=== PATIENT | male | born 2000 | race Caucasian/White ===

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

== ENCOUNTER 2020-07-18 08:14 | Emergency (ER) | payer SELFPAY ==
--- NOTE | 2020-07-18 08:21 | ED_ITS ---
HPI - Male Genitourinary General: Chief complaint: Wound/Laceration Stated complaint: NEEDS STD TESTED Time Seen by Provider: 07/18/20 08:15 Source: patient Mode of arrival: ambulatory Limitations: no limitations History of Present Illness: HPI Narrative: Patient is a 20-year-old male who presents to ED today requesting STD testing. Patient tells me he recently had intercourse with a female individual who later told him that she was only diagnosed with a UTI but he suspects she may have had an STD. Patient is having severe dysuria. He has not noticed any penile discharge. He has a separate complaint of a very small bump on his penis. He states the lesion is not painful and does not burn or itch. Patient states he has had unprotected anal intercourse. MD Complaint: dysuria and possible STD exposure Onset (ago): day(s) Duration: constant Location: penis Severity: severe Relieving factors: none Exacerbating factors: urination Associated symptoms: Reports no associated symptoms and dysuria; Deny nausea or vomiting Related Data: Sexually active: Yes Review of Systems Const: Denies: fever(s), chills, body aches, fatigue or malaise GI: Denies: abdominal pain, nausea, vomiting or change in stool character : Reports: dysuria, urinary hesitancy and genital lesions; Denies: flank pain, urinary urgency, difficulty starting urination, change in urine stream, penile discharge, testicular pain, testicular mass, scrotal swelling or painful ejaculations Musc: Denies: back pain PFSH ED PFSH: Social History Smoking and tobacco status: current every day smoker Alcohol intake: unknown Current gender identity: Male Physical Exam 2 Const: COMMON NORMALS: no acute distress, average body habitus, patient oriented x3, no limitations, healthy appearing, alert and well nourished GENERAL APPEARANCE: cooperative GI: COMMON NORMALS: Normal to inspection, nondistended, normoactive bowel sounds present, Soft to palpation, non-tender, No hepatosplenomegaly present and no masses PALPATION: Yes Soft to palpation and Yes No hepatosplenomegaly present : COMMON NORMALS: Yes no CVA tenderness, Yes Testes normal, Yes scrotum normal and Yes No hernias present BLADDER/KIDNEY EXAM: Yes no CVA tenderness PENIS: circumcised, no pustules, no vesicles and no ulcerations MEATUS: meatus normal, no meatla discharge and No Blood at meatus present SCROTUM: Yes testes descended bilaterally TESTES: Yes testicular lie normal OTHER: pt has one very small 1-2mm scabbed healing lesion on glans; it is not ulcerated or vesicular; it is not erythematous; there are no other lesions present Back/Pelvis: COMMON NORMALS: no CVA tenderness Neuro: COMMON NORMALS: patient oriented x3 SENSORIUM/ORIENTATION: Yes alert Course Vital Signs: Vital signs: Vital Signs Temperature 98.1 F 07/18/20 08:22 Pulse Rate 97 07/18/20 08:22 Respiratory Rate 15 07/18/20 08:30 Blood Pressure 139/92 07/18/20 08:22 Pulse Oximetry 100 07/18/20 08:22 MDM - Male MDM Narrative: Medical decision making narrative: pts penile lesion at this time does not look like HSV; lesion is not suspicious for a syphilitic chancre; urine here is normal; will be tested for gonorrhea/chlamydia. He was given IM rocephin and azithromycin prophylactically Lab Data: Labs: Lab Results 07/18/20 Range/Units 08:37 Urine Color Yellow (Yellow) Urine Appearance Clear (CLEAR) Urine pH 6.5 (5-7) Ur Specific Gravit y 1.015 (1.005-1.030) Urine Protein Neg (Negative) Urine Glucose (UA) Norm (Normal) Urine Ketones Negative (Negative) Urine Blood Neg (Negative) Urine Nitrate Negative (Negative) Urine Bilirubin Neg (Negative) Urine Urobilinogen 4 H (Negative) mg/dL Ur Leukocyte Myrna ase Negative (Negative) Discharge Plan Discharge Patient Disposition: Home Clinical Impression: Dysuria Condition: Stable Prescriptions: No Action omeprazole 40 mg capsule,delayed release(DR/EC) 40 mg PO BID Qty: 60 RF: 2 sucralfate [Carafate] 1 gram tablet 1 gm PO Q6H Qty: 120 RF: 1 tizanidine 4 mg capsule 4 mg PO .qhs PRN (Reason: muscle spasticity) Qty: 30 RF: 2 diclofenac sodium 75 mg tablet,delayed release (DR/EC) 75 mg PO BID Qty: 60 RF: 2 Discharge Orders: Discharge ED (Routine); Ordered 07/18/20 Ordered By: Tiffanie Moyer Patient Instructions: Dysuria - Male, Sexually Transmitted Diseases (ED), Safe Sex (ED) Activity Restrictions/Additional Instructions: As discussed you should be called in the next 48 hours if positive for gonorrhea or chlamydia. If positive you need to have a test of cure performed [facility] You would need to also alert all sexual partners so they could also receive treatment. If results are negative please follow-up with your primary care provider for further management of the burning with urination. 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
[2020-07-18 08:22] VITALS: BP 139/92; PULSE 97; RESP 18; TEMP 36.7; O2SAT 100; BMI 22.8
[2020-07-18 08:30] VITALS: RESP 15
[2020-07-18 08:52] LABS: Add Urine Microscopic? NO
[2020-07-18 09:02] LABS: Specific Gravity, Urine 1.015 (1.005-1.030); Urine Appearance Clear (CLEAR); Urine Color Yellow (Yellow); pH Urine 6.5 (5-7)
[2020-07-18 09:03] LABS: Bilirubin Urine Neg (Negative); Blood Urine Neg (Negative); Glucose Urine UA Norm (Normal); Ketones Urine Negative (Negative); Leukocyte Esterase Urine Negative (Negative); Nitrate Urine Negative (Negative); Protein Urine Neg (Negative); Urobilinogen Urine 4 mg/dL (Negative)
[2020-07-18] MEDS: azithromycin 250 mg Tablet 1000 MG PO (09:17)
[2020-07-18 09:59] VITALS: BP 135/78; PULSE 71; RESP 16; O2SAT 97
--- NOTE | 2020-07-20 08:29 | PC.NURSE ---
Patient called to ED requesting test results, informed patient of positive chalmydia trachomatis. Called Azithromycin 1gm once PO to [facility] per patient, pharmacy was out of stock. Attempted to contact patient with the number in patients chart and the number [facility] provided, both numbers out of service. Asked [facility] to please order the Rx for patient that would be delivered to pharmacy tomorrow.
== END 2020-07-18 10:00 | disposition home or self-care (01) ==
PROVIDERS: Emergency Provider Physician Assistant
DX: R30.0 Dysuria (principal); F17.210 Nicotine dependence, cigarettes, uncomplicated
CPT/HCPCS: 81003; 87491; 87591; 96372; 99283; J0696; Q0144

== ENCOUNTER 2021-01-13 10:58 | Emergency (ER) | payer SELFPAY ==
[2021-01-13 11:36] VITALS: BP 144/94; PULSE 82; RESP 19; TEMP 36.8; O2SAT 98; BMI 24.0
[2021-01-13 12:10] VITALS: BP 134/91; PULSE 81; RESP 16; O2SAT 100
--- NOTE | 2021-01-13 12:19 | ED_ITS ---
HPI - Abdominal Pain General: Chief Complaint: Abdominal Pain Stated Complaint: throwing up brown/black tarry circles:sent by [facility] Time Seen by Provider: 01/13/21 12:04 Source: patient Mode of arrival: ambulatory Limitations: no limitations History of Present Illness: HPI narrative: 20-year-old male presents to the ER today for 1 episode of vomiting this a.m. and he noticed dark red spots in his vomit. Patient admits to drinking last night in excess. He denies any vomiting while drinking or during the night, but does contribute the morning episode of vomiting to the drinking last night. Patient reports with this he has had some epigastric discomfort which seems to come and go. Patient reports a history of gastric ulcers for which in the past he was treated with a PPI, Carafate, tizanidine and something for pain he reports. When his girlfriend left him she took the medications with her. Patient reports he used to drink a lot more than he does but last night he did drink more than normal. Patient denies any nausea at this time. Denies any vomiting since the one episode this a.m, denies diarrhea, denies constipation. Patient denies any fever or chills. Patient denies recent illness. MD elicited complaint: abdominal pain (mild mid epigastric) Pertinent past history: other (gastric ulcers) Onset (ago): hour(s) Pain Consistency: intermittent Location: Epigastric Severity: mild Quality: cramping Radiation: none Exacerbating factors: other (drinking) Context: other (excessive drinking last night) Associated Symptoms: Reports hematemesis (dark spot noted in emesis), nausea and vomiting; Denies change in bowel habits, chills, constipation, diarrhea and fever(s) Review of Systems Const: Denies: fever(s) or chills ENMT: Denies: throat pain, nasal discharge or nasal congestion Card: Denies: chest pain or palpitations Resp: Denies: dyspnea, productive cough or non-productive cough GI: Reports: abdominal pain (epigastric), nausea, vomiting and hematemesis (dark spot noted in emesis); Denies: diarrhea, constipation or change in bowel habits Musc: Denies: back pain Skin/Breast: Denies: rash Neuro: Denies: headache(s) PFSH ED PFSH: Social History Smoking and tobacco status: current every day smoker Alcohol intake: unknown Current gender identity: Male Physical Exam Const: COMMON NORMALS: no acute distress, average body habitus, patient oriented x3 and healthy appearing GENERAL APPEARANCE: cooperative HENMT: COMMON NORMALS: normocephalic HEAD & SCALP: normocephalic Lymph: LYMPHATIC: no lymphadenopathy noted Resp: COMMON NORMALS: normal respiratory effort, No retractions and clear to auscultation bilaterally EFFORT & INSPECTION: Yes able to speak in complete sentences AUSCULTATION: clear to auscultation bilaterally, no rales, no rhonchi and no wheezes Cardio: COMMON NORMALS: regular rate, regular rhythm and No murmurs present (Cardio) RATE: regular rate RHYTHM: regular rhythm GI: COMMON NORMALS: Normal to inspection, nondistended, normoactive bowel sounds present and Soft to palpation PALPATION: Yes Soft to palpation, Yes Tenderness to palpation present (GI) (minimal epigastric tenderness) and No Guarding due to palpation present (GI) Extremity: COMMON NORMALS: normal to inspection and full ROM Neuro: COMMON NORMALS: patient oriented x3 Psych: COMMON NORMALS: mental status grossly normal and Normal thought process present THOUGHT PROCESS: Normal thought process present Skin: COMMON NORMALS: no rashes or lesions noted GENERAL SKIN EXAM: no rashes or lesions noted Course ED course: We will start with lab work. Patient does not note any bright red blood and has only had one episode of emesis. He is not currently in any pain and does not currently have any nausea. Patient has a known history of gastric ulcers but has not been taking medication for that appropriately. Vital Signs: Vital signs: Vital Signs Temperature 98.3 F 01/13/21 11:36 Pulse Rate 81 01/13/21 12:10 Respiratory Rate 16 01/13/21 12:10 Blood Pressure 134/91 01/13/21 12:10 Pulse Oximetry 100 01/13/21 12:10 MDM - Abdominal Pain MDM Narrative: Medical decision making narrative: Patient presents to the ER today for reports of one episode of hematemesis. This happened after drinking last night. Patient has a history of gastric ulcers and was previously on medication but has been off for a while. His physical exam was unremarkable in ER and patient is stable. Labs are all normal. We will restart patient on omeprazole and Carafate at this time. He should follow-up with his PCP in 1 week. If he has any worsening of symptoms or more episodes of hematemesis he should follow-up in the ER. Lab Data: Attestation: I reviewed the patient's lab results. Lab results narrative: Labs unremarkable Labs: Lab Results 01/13/21 01/13/21 Range/Units 12:24 12:24 WBC 6.6 (4.5-13.0) 10^3/ uL RBC 5.54 H (4.1-5.3) 10^6/u L Hgb 17.1 H (11.7-16.6) g/dL Hct 50.3 (42.0-52.0) % MCV 90.8 (80-94) fl MCH 30.9 (28.0-34.0) pg MCHC 34.0 (30.0-36.0) g/dL RDW 13.2 (12.1-15.1) % Plt Count 285 (130-400) 10^3/c mm MPV 10.6 H (7.4-10.4) fL Neut % (Auto) 64.7 % Lymph % (Auto) 21.6 % [place] % (Auto) 11.5 % Eos % (Auto) 0.8 % Baso % (Auto) 1.1 % Neut # (Auto) 4.29 (1.8-8.0) 10^3/u L Lymph # (Auto) 1.4 L (1.5-6.5) 10^3/u L [place] # (Auto) 0.8 (0.2-0.9) 10^3/u L Eos # (Auto) 0.1 (0.0-0.8) 10^3/u L Baso # (Auto) 0.1 (0.0-0.1) 10^3/u L Nucleated RBC % (a uto) 0 % Nucleated RBCs # 0.0 /100WBC Sodium 140 (136-145) mmol/L Potassium 4.2 (3.5-5.1) mmol/L Chloride 102 (98-107) mmol/L Carbon Dioxide 26 (22-29) mmol/L Anion Gap 16.2 (5-19) BUN 8 (6-20) mg/dL Creatinine 0.7 (0.7-1.2) mg/dL GFR Calculation 143.8 H (90-130) mL/min Glucose 83 (65-115) mg/dL Calculated Osmolal ity 287 (285-295) mOsm/k g Calcium 9.1 (8.5-10.5) mg/dL Total Bilirubin 0.6 (0.15-1.2) mg/dL AST 16 (0-40) U/L ALT 17 (0-41) U/L Alkaline Phosphata se 65 (40-130) IU/L Total Protein 7.9 (6.6-8.7) g/dL Albumin 4.5 (3.5-5.2) g/dL Globulin 3.4 (1.3-4.6) g/dL Lipase 28 (13-60) U/L Critical Care Time Critical Care Time: Critical Care Time: No Discharge Plan Discharge Patient Disposition: Home Clinical Impression: Hematemesis/vomiting blood Qualifiers: Nausea presence: unspecified Qualified Code(s): K92.0 - Hematemesis Condition: Stable Prescriptions: New omeprazole 20 mg capsule,delayed release(DR/EC) 20 mg PO DAILY Qty: 30 RF: 0 Carafate 1 gram tablet 1 g PO BID Qty: 28 RF: 0 Discharge Orders: Discharge ED (Routine); Ordered 01/13/21 Ordered By: Kaylan Weems Discharge Diet: Usual diet Discharge Activity: Resume usual activity Patient Instructions: Opioid Safety Activity Restrictions/Additional Instructions: Take omeprazole and Carafate as prescribed. Avoid alcohol use. Follow-up with PCP in 1 week. Return to the ER with any new or worsening symptoms. Coding Level of Care Code ED Human Services Worker for Nieves Fwd Exam Comprehensive
[2021-01-13 12:38] LABS: Basophils # 0.1 10^3/uL (0.0-0.1); Basophils % 1.1 %; Eosinophils # 0.1 10^3/uL (0.0-0.8); Eosinophils % 0.8 %; Hematocrit 50.3 % (42.0-52.0); Hemoglobin 17.1 g/dL (11.7-16.6); Lymphocytes # 1.4 10^3/uL (1.5-6.5); Lymphocytes % 21.6 %; Mean Corpuscular Hemoglobin 30.9 pg (28.0-34.0); Mean Corpuscular Volume 90.8 fl (80-94); Mean Platelet Volume 10.6 fL (7.4-10.4); Monocytes # 0.8 10^3/uL (0.2-0.9); Monocytes % 11.5 %; Neutrophils # 4.29 10^3/uL (1.8-8.0); Neutrophils % 64.7 %; Nucleated Red Blood Cells % 0 %; Platelet Count 285 10^3/cmm (130-400); Red Blood Count 5.54 10^6/uL (4.1-5.3); Red Cell Distribution Width 13.2 % (12.1-15.1); White Blood Count 6.6 10^3/uL (4.5-13.0)
[2021-01-13 13:00] VITALS: BP 130/97; PULSE 94; RESP 16; O2SAT 98
[2021-01-13 13:05] LABS: Alanine Aminotransferase 17 U/L (0-41); Albumin Level 4.5 g/dL (3.5-5.2); Alkaline Phosphatase 65 IU/L (40-130); Anion Gap 16.2 (5-19); Aspartate Amino Transferase 16 U/L (0-40); Blood Urea Nitrogen 8 mg/dL (6-20); Calcium 9.1 mg/dL (8.5-10.5); Carbon Dioxide 26 mmol/L (22-29); Chloride 102 mmol/L (98-107); Globulin 3.4 g/dL (1.3-4.6); Glomerular Filtration Rate 143.8 mL/min (90-130); Glucose 83 mg/dL (65-115); Lipase 28 U/L (13-60); Osmolality Calculated 287 mOsm/kg (285-295); Potassium 4.2 mmol/L (3.5-5.1); Sodium 140 mmol/L (136-145); Total Bilirubin 0.6 mg/dL (0.15-1.2); Total Protein 7.9 g/dL (6.6-8.7)
== END 2021-01-13 13:35 | disposition home or self-care (01) ==
PROVIDERS: Emergency Provider Physician Assistant
DX: K92.0 Hematemesis (principal); F17.210 Nicotine dependence, cigarettes, uncomplicated
CPT/HCPCS: 80053; 83690; 85025; 99282

== ENCOUNTER 2022-12-16 20:02 | Emergency (ER) | payer MEDICAID, SELFPAY ==
[2022-12-16 20:16] VITALS: BP 120/60; PULSE 101; RESP 18; TEMP 36.7; O2SAT 97; BMI 27.3
--- NOTE | 2022-12-16 20:20 | XRR_ITS ---
PROCEDURE INFORMATION: Exam: XR Right Tibia and Fibula Exam date and time: 12/16/2022 9:44 PM Age: 22 years old Clinical indication: Injury or trauma; Fall TECHNIQUE: Imaging protocol: Radiologic exam of the right tibia and fibula. Views: 2 views. COMPARISON: No relevant prior studies available. FINDINGS: Bones/joints: Mildly displaced distal fibular acute spiral fracture. Equivocal fracture in the posterior malleolus. No dislocation. Soft tissues: Lateral ankle swelling. XR/XR tibia fibula RT 2V [id number] IMPRESSION: 1. Distal fibula acute spiral fracture. 2. Equivocal fracture in the posterior malleolus.
[2022-12-16 21:27] VITALS: BP 129/75; PULSE 91; RESP 18; TEMP 36.7; O2SAT 98
--- NOTE | 2022-12-16 21:40 | ED_ITS ---
HPI - Extremity Problem General: Chief complaint: Extremity Injury, Lower Stated complaint: right foot injury Time Seen by Provider: 12/16/22 21:35 History of Present Illness: This 22-year-old male presents to the ER for evaluation of right lower extremity injury that occurred just prior to arrival. His friend was chasing him and while running, he twisted the right ankle. He notes that he heard a pop in the right leg. He could not walk afterwards. He denies any other injuries. Associated symptoms: Deny chest pain Review of Systems Const: Denies: chills, body aches or change in appetite Eyes: Denies: change in vision or eye discharge ENMT: Denies: throat pain, dental pain or nasal discharge Card: Denies: chest pain or lightheadedness : Denies: dysuria Musc: Reports: joint pain (right ankle ); Denies: neck pain or back pain Neuro: Denies: headache(s) or weakness in extremities Psych: Denies: depression Jarek/Lymph: Denies: easy bruising All/Imm: Denies: urticaria, tongue swelling or facial swelling PFSH ED PFSH: Social History Smoking and tobacco status: current every day smoker Alcohol intake: unknown Substance/Drug Use: unknown Current gender identity: Male Physical Exam Const: COMMON NORMALS: no acute distress, patient oriented x3, no limitations and alert HENMT: COMMON NORMALS: normocephalic HEAD & SCALP: normocephalic Eye: COMMON NORMALS: EOMs intact bilaterally Neck/C-Spine: COMMON NORMALS: full ROM and supple Chest: COMMONS NORMALS: normal inspection of the chest Resp: COMMON NORMALS: normal respiratory effort, No retractions, No use of accessory muscles and clear to auscultation bilaterally AUSCULTATION: clear to auscultation bilaterally Cardio: COMMON NORMALS: regular rate, regular rhythm and No murmurs present (Cardio) RATE: regular rate RHYTHM: regular rhythm GI: COMMON NORMALS: Normal to inspection, nondistended, normoactive bowel sounds present and non-tender : COMMON NORMALS: Yes no CVA tenderness BLADDER/KIDNEY EXAM: Yes no CVA tenderness Back/Pelvis: COMMON NORMALS: no CVA tenderness and no thoracic nor lumbar tenderness Extremity: GENERAL: Yes normal exam except as noted OTHER: Swelling and tenderness of the right lateral malleolus. Marked limitation of ankle movement due to pain. Dorsalis pedis pulse is present and there is no distal neurologic deficit. Neuro: COMMON NORMALS: patient oriented x3 and no focal motor deficits SENSORIUM/ORIENTATION: Yes alert Psych: COMMON NORMALS: mental status grossly normal and cooperative Course Vital Signs: Vital signs: Vital Signs Temperature 98.0 F 12/16/22 21:27 Pulse Rate 91 12/16/22 21:27 Respiratory Rate 18 12/16/22 21:27 Blood Pressure 129/75 12/16/22 21:27 Pulse Oximetry 98 12/16/22 21:27 Oxygen Delivery Me thod Room Air 12/16/22 21:27 MDM - Extremity (Nontraumatic) Medical Decision Making Medical decision making: History as above. X-ray reveals fracture of the right lateral malleolus. There is no ankle dislocation. Patient was put in a splint and provided a pair of crutches. He will follow-up with Dr. Lin in the office. Consult was sent to case management to help him schedule an appointment. Patient was also advised to call Dr. Lin's office to schedule an outpatient appointment. He was sent home with pain medications and provided with return instructions. Patient verbalized understanding and agrees with the plan. Discharge Plan Discharge Patient Disposition: Home Clinical Impression: Fracture of lateral malleolus of right ankle Condition: Stable Prescriptions: New hydrocodone-acetaminophen 5-325 mg tablet 1 tab PO QID PRN (Reason: pain) Qty: 20 0RF Discharge Orders: Discharge ED (Routine); Ordered 12/16/22 Ordered By: Stephanie Freitas Discharge Diet: Usual diet Discharge Activity: Resume usual activity Patient Instructions: Opioid Safety, Pain Management Activity Restrictions/Additional Instructions: Utilized the pair of crutches provided. Do not bear weight. Call 's office to schedule a follow-up appointment. Take [place] as needed for pain. Return if you develop any new concerning symptoms. 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
--- NOTE | 2022-12-16 21:49 | XRR_ITS ---
PROCEDURE INFORMATION: Exam: XR Right Foot Exam date and time: 12/16/2022 9:51 PM Age: 22 years old Clinical indication: Injury or trauma; Fall; Additional info: Lower extremity injury TECHNIQUE: Imaging protocol: Radiologic exam of the right foot. Views: 1 or 2 views. COMPARISON: CR (LOW EXM, ) 12/16/2022 9:44 PM FINDINGS: Bones/joints: Mildly displaced distal fibular acute spiral fracture. Equivocal fracture in the posterior malleolus. No dislocation. Soft tissues: Lateral ankle and midfoot swelling. XR/XR foot RT 2V [id number] IMPRESSION: 1. Distal fibula acute spiral fracture. 2. Equivocal fracture in the posterior malleolus.
[2022-12-16] MEDS: HYDROcodone-acetaminophen 5-325 mg Tablet 1 TAB PO (22:45)
--- NOTE | 2022-12-17 08:18 | DCPLANNER ---
Addendum entered by Twila Lau 12/26/22 13:22: Patient did attend appointment scheduled with ortho. Addendum entered by Twila Lau 12/17/22 14:25: digital marketing program manager received the following message from the ortho clinic regarding follow up appointment: Yes it looks like Y[facility] had scheduled it tentatively, we cannot reach the patient as the number in the chart is not in service. On 12/17/22 @ 14:10 Twila Lau Wrote To Orthopedic Front Offfice I don't see this scheduled, was it cancelled? On 12/17/22 @ 10:35 Barbara Hermosillo Wrote To Twila Lau Looks like [facility] Oconnor got the patient scheduled this morning to see Dr. Jurado this afternoon. Thank you Original Note: digital marketing program manager had message to schedule a follow up appointment for patient with ortho. digital marketing program manager sent patients information to the front office staff at ortho. Patients information will be printed and reviewed. Clinic will call patient with appointment information.
--- NOTE | 2022-12-17 12:05 | DCPLANNER ---
system development manager called patient due to no primary care physician - no answer at this time.
== END 2022-12-16 22:57 | disposition home or self-care (01) ==
PROVIDERS: Emergency Provider Family Medicine
DX: S82.61XA Displaced fracture of lateral malleolus of right fibula, initial encounter for closed fracture (principal); S82.441A Displaced spiral fracture of shaft of right fibula, initial encounter for closed fracture; X50.1XXA Overexertion from prolonged static or awkward postures, initial encounter; F17.210 Nicotine dependence, cigarettes, uncomplicated
CPT/HCPCS: 73590; 73620; 99283; E0114

== ENCOUNTER → 2022-12-25 12:23 | Outpatient (BNVA) | payer MEDICAID, SELFPAY | PROVIDERS: Referring Provider Family Medicine; Visit Provider Podiatrist Foot & Ankle Surgery | DX: S82.401A Unspecified fracture of shaft of right fibula, initial encounter for closed fracture; R60.9 Edema, unspecified; X50.1XXA Overexertion from prolonged static or awkward postures, initial encounter; Y93.02 Activity, running | CPT/HCPCS: 73610 ==

== ENCOUNTER 2023-01-03 15:57 | Emergency (ER) | payer MEDICAID, SELFPAY ==
[2023-01-03 16:12] VITALS: BP 126/80; PULSE 75; RESP 16; TEMP 37; O2SAT 99; BMI 27.4
--- NOTE | 2023-01-03 16:38 | XRR_ITS ---
PROCEDURE INFORMATION: Exam: XR Right Ankle Exam date and time: 01/03/2023 4:42 PM Age: 22 years old Clinical indication: Pain; Ankle; Right; Patient HX: PT fell with cast on; Additional info: FX TECHNIQUE: Imaging protocol: Radiologic exam of the right ankle. Views: 3 or more views. COMPARISON: CR (LOW EXM, ) 12/16/2022 9:51 PM FINDINGS: Bones/joints: Overlying fiberglass splint is seen. Spiral or oblique fracture of the lateral malleolus is seen with slight cortical offset deformity without significant displacement or angulation, as seen with previous exam of the right tibia and fibula on December 16, 2022. Mild interval healing. No other fracture is seen. Ankle joint appears maintained. Soft tissues: Soft tissues are limited due to overlying cast without significant focal abnormality. XR/XR ankle RT min 3V* [id number] IMPRESSION: Fiberglass cast for immobilization spiral or oblique fracture of the lateral malleolus as noted above.
--- NOTE | 2023-01-03 17:03 | W.ED.EXTPRO ---
HPI - Extremity Problem General: Chief complaint: Extremity Injury, Lower Stated complaint: right leg injury Time Seen by Provider: 01/03/23 16:38 Source: patient Mode of arrival: ambulatory Limitations: no limitations History of Present Illness: 22-year-old male has a right fibular fracture that occurred 3 weeks ago he has been followed with Dr. Chappell she is currently in a cast he states that yesterday he was walking and tripped and hit his cast on the floor has been having some increased pain since then he is resting comfortably in the room texting at this time states his pain is a 5 out of 10. Associated symptoms: Deny chest pain, fever(s) or rash Review of Systems Const: Denies: fever(s) or chills ENMT: Denies: throat pain or dental pain Card: Denies: chest pain Resp: Denies: dyspnea GI: Denies: abdominal pain, nausea, vomiting or diarrhea Musc: Reports: extremity pain; Denies: neck pain or back pain Skin/Breast: Denies: rash PFSH ED PFSH: Social History Smoking and tobacco status: current every day smoker Alcohol intake: unknown Substance/Drug Use: unknown Current gender identity: Male Physical Exam Const: COMMON NORMALS: no acute distress and patient oriented x3 HENMT: COMMON NORMALS: atraumatic HEAD & SCALP: atraumatic Eye: COMMON NORMALS: conjunctivae normal CONJUNCTIVA: Yes conjunctivae normal Chest: COMMONS NORMALS: normal inspection of the chest Resp: COMMON NORMALS: normal respiratory effort Extremity: OTHER: Cast is in place he is no noted swelling good distal cap refill to toes good sensation Neuro: COMMON NORMALS: patient oriented x3 Psych: COMMON NORMALS: mental status grossly normal Skin: COMMON NORMALS: no rashes or lesions noted GENERAL SKIN EXAM: no rashes or lesions noted Course Vital Signs: Vital signs: Vital Signs Temperature 98.6 F 01/03/23 16:12 Pulse Rate 75 01/03/23 16:12 Respiratory Rate 16 01/03/23 16:12 Blood Pressure 126/80 01/03/23 16:12 Pulse Oximetry 99 01/03/23 16:12 Oxygen Delivery Me thod Room Air 01/03/23 16:12 MDM - Extremity (Nontraumatic) Medical Decision Making Patient presents with right ankle pain x-ray shows no acute change to his fracture we will leave cast in place no signs of swelling we will place him on 8 hydrocodone's he is to 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 Imaging Data Xray Ortho: My impression: no new abnormality noted Discharge Plan Discharge Patient Disposition: Home Clinical Impression: Closed right fibular fracture Qualifiers: Encounter type: subsequent encounter Condition: Stable Prescriptions: New hydrocodone-acetaminophen 5-325 mg tablet 1 tab PO Q6H PRN (Reason: pain) Qty: 8 0RF No Action tramadol 50 mg tablet 50 mg PO Q6H PRN (Reason: pain) Qty: 16 0RF hydrocodone-acetaminophen 5-325 mg tablet 1 tab PO QID PRN (Reason: pain) Qty: 20 0RF Discharge Orders: Discharge ED (Routine); Ordered 01/03/23 Ordered By: Messi Bang Referrals: Gus Jurado DPM [Primary Care Provider] - 1-3 days Discharge Diet: Advance as tolerated Discharge Activity: Resume usual activity Patient Instructions: Ankle Fracture (ED), Opioid Safety Coding Level of Care Code ED Supervisor Erection 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
[2023-01-03] MEDS: HYDROcodone-acetaminophen 7.5-325 mg Tablet 1 TAB PO (17:22)
== END 2023-01-03 17:27 | disposition home or self-care (01) ==
PROVIDERS: Emergency Provider Emergency Medicine; PCP Podiatrist Foot & Ankle Surgery
DX: S82.401A Unspecified fracture of shaft of right fibula, initial encounter for closed fracture (principal); F17.210 Nicotine dependence, cigarettes, uncomplicated; X58.XXXA Exposure to other specified factors, initial encounter
CPT/HCPCS: 73610; 99283

== ENCOUNTER → 2023-01-11 11:45 | Outpatient (BNVA) | payer MEDICAID, SELFPAY | PROVIDERS: PCP Podiatrist Foot & Ankle Surgery; Visit Provider Podiatrist Foot & Ankle Surgery | DX: S82.831A Other fracture of upper and lower end of right fibula, initial encounter for closed fracture; X58.XXXA Exposure to other specified factors, initial encounter; R60.9 Edema, unspecified | CPT/HCPCS: 73610 ==

== ENCOUNTER 2024-11-03 10:04 | Emergency (ER) | payer SELFPAY ==
[2024-11-03 10:23] VITALS: BP 145/102; PULSE 92; TEMP 36.7; O2SAT 98
--- NOTE | 2024-11-03 10:25 | XR_ITS ---
WS: [id number] Exam: XR chest 1V portable [id number] Date/Time of Exam: 11/03/2024 10:25 AM Reason For Exam: dyspnea/cough No priors. Lungs are clear and fully inflated. Normal cardiomediastinal silhouette and regional bony structures. No pleural effusion. XR/XR chest 1V portable [id number] IMPRESSION: 1. Normal chest.
--- NOTE | 2024-11-03 10:27 | ED_ITS ---
HPI - General Adult 2 General: Chief complaint: Alcohol Stated complaint: alcohol withdrawl, trouble breathing Time Seen by Provider: 11/03/24 10:26 History of Present Illness: 24-year-old male presents emergency room states for the last about 6 years he has been drinking 1/5 of hard liquor per day. He quit for a week approximately 2 and half weeks ago and then he went on a 3-day burger now it has been 4 days since his last drink. Comes in today complaining of stomach upset anxiousness some mild tremor. He is complaining of some flank pain concentrated urine. He denies any hematochezia melena hematemesis coffee-ground emesis. Previously when he is attempted to stop drinking he has not had any seizures. No history of upper GI bleed. Associated symptoms: Deny chest pain, dyspnea or rash Related Data Previous Rx's ?Medication ?Instructions ?Recorded hydrocodone 5 mg-acetaminophen 325 1 tab PO QID PRN pa in #20 tabs 12/16/22 mg tablet tramadol 50 mg tablet 50 mg PO Q6H PRN pain #16 ta bs 12/25/22 hydrocodone 5 mg-acetaminophen 325 1 tab PO Q6H PRN pa in #8 tabs 01/03/23 mg tablet clindamycin HCl 300 mg capsule 300 mg PO Q6H #40 caps 01/11/23 chlordiazepoxide HCl 25 mg capsule 25 mg PO QID #7 cap s 11/03/24 pantoprazole 40 mg tablet,delayed 40 mg PO DAILY 4 wee ks #30 tabs 11/03/24 release Allergies Allergy/AdvReac Type Severity Reaction Status Date / Time escitalopram (From Lexapro) Allergy rash Verified 11/03/24 10:29 Review of Systems 2 Const: Denies: fever(s) or chills Card: Denies: chest pain Resp: Denies: dyspnea GI: Denies: abdominal pain : Denies: dysuria, urinary frequency or urinary urgency Musc: Denies: neck pain or back pain Skin/Breast: Denies: rash PFSH ED 2 PFSH: Medical History (Updated 11/03/24 @ 13:31 by Samson Tellez DO) GERD (gastroesophageal reflux disease) Social History Smoking and tobacco/nicotine status: current every day tobacco/nicotine user Alcohol intake: unknown Substance/Drug Use: unknown Current gender identity: Male Physical Exam 2 Const: GENERAL APPEARANCE: cooperative ORIENTATION/CONSCIOUSNESS: Yes awake, Yes oriented to person, Yes oriented to place and Yes oriented to time HENMT: COMMON NORMALS: normocephalic, atraumatic and hearing grossly normal bilaterally HEAD & SCALP: normocephalic and atraumatic Resp: COMMON NORMALS: normal respiratory effort, No retractions, No use of accessory muscles and clear to auscultation bilaterally AUSCULTATION: clear to auscultation bilaterally Cardio: COMMON NORMALS: regular rate, regular rhythm and No murmurs present (Cardio) RATE: regular rate RHYTHM: regular rhythm GI: COMMON NORMALS: Soft to palpation and No hepatosplenomegaly present A USCULTATION: Yes normoactive bowel sounds PALPATION: Yes Soft to palpation, No Tenderness to palpation present (GI), No Guarding due to palpation present (GI) and Yes No hepatosplenomegaly present Extremity: COMMON NORMALS: normal to inspection, capillary refill normal, no clubbing, cyanosis or edema, no calf tenderness and no pedal edema Neuro: SENSORIUM/ORIENTATION: Yes oriented to person, Yes oriented to place and Yes oriented to time Skin: COMMON NORMALS: no rashes or lesions noted GENERAL SKIN EXAM: no rashes or lesions noted Course 2 Vital Signs: Vital signs: Vital Signs Temperature 98.1 F 11/03/24 10:23 Pulse Rate 100 11/03/24 13:47 Blood Pressure 137/76 11/03/24 13:47 Pulse Oximetry 97 11/03/24 13:47 Oxygen Delivery Me thod Room Air 11/03/24 10:23 [facility] - General Adult Medical Decision Making Patient has not had problems with seizure in the past does have some mild tremulousness this was resolved with Ativan. Will discharge him home he is already 4 days into sobriety. Discharge patient home with a taper of chlordiazepoxide. Patient has plans with assistance of family to enter a substance abuse program. Medical Records I reviewed the patient's medical records. Lab Data I reviewed the patient's lab results. 11/03/24 11:30 11/03/24 11:30 Radiology Impressions Chest X-Ray 11/03/24 10:25 IMPRESSION: 1. Normal chest. Laboratory Results WBC 8.19 10^3/uL (3.29-11.43) 11/03/24 11:30 RBC 5.23 10^6/uL (3.85-5.65) 11/03/24 11:30 Hgb 15.60 g/dL (11.27-16.99) 11/03/24 11:30 Hct 46.2 % (37-53) 11/03/24 11:30 MCV 88.3 fl (82-101) 11/03/24 11:30 MCH 29.8 pg (27-33) 11/03/24 11:30 MCHC 33.8 g/dL (30-55) 11/03/24 11:30 RDW 12.6 % (12.1-15.1) 11/03/24 11:30 Plt Count 265 10^3/cmm (157-399) 11/03/24 11:30 MPV 10.3 fL (7.4-10.4) 11/03/24 11:30 Neut % (Auto) 77.1 % 11/03/24 11:30 Lymph % (Auto) 14.9 % 11/03/24 11:30 [place] % (Auto) 6.7 % 11/03/24 11:30 Eos % (Auto) 0.5 % 11/03/24 11:30 Baso % (Auto) 0.4 % 11/03/24 11:30 Neut # (Auto) 6.32 10^3/uL (1.8-7.7) 11/03/24 11:30 Lymph # (Auto) 1.2 10^3/uL (0.8-4.8) 11/03/24 11:30 [place] # (Auto) 0.6 10^3/uL (0.2-0.9) 11/03/24 11:30 Eos # (Auto) 0.0 10^3/uL (0.0-0.8) 11/03/24 11:30 Baso # (Auto) 0.0 10^3/uL (0.0-0.1) 11/03/24 11:30 Nucleated RBC % (auto) 0 % 11/03/24 11:30 Nucleated RBCs # 0.0 /100WBC 11/03/24 11:30 Sodium 135 mmol/L (136-145) L 11/03/24 11:30 Potassium 3.7 mmol/L (3.5-5.1) 11/03/24 11:30 Chloride 96 mmol/L (98-107) L 11/03/24 11:30 Carbon Dioxide 23 mmol/L (22-29) 11/03/24 11:30 Anion Gap 19.7 (5-19) H 11/03/24 11:30 BUN 14 mg/dL (6-20) 11/03/24 11:30 Creatinine 1.0 mg/dL (0.7-1.2) 11/03/24 11:30 GFR Calculation 91.8 mL/min (90-130) 11/03/24 11:30 Glucose 117 mg/dL (65-115) H 11/03/24 11:30 Calculated Osmolality 282 mOsm/kg (285-295) L 11/03/24 11:30 Calcium 9.4 mg/dL (8.5-10.5) 11/03/24 11:30 Total Bilirubin 1.5 mg/dL (0.15-1.2) H 11/03/24 11:30 AST 19 U/L (0-40) 11/03/24 11:30 ALT 21 U/L (0-41) 11/03/24 11:30 Alkaline Phosphatase 109 U/L (40-130) 11/03/24 11:30 Total Protein 7.7 g/dL (6.6-8.7) 11/03/24 11:30 Albumin 4.2 g/dL (3.5-5.2) 11/03/24 11:30 Globulin 3.5 g/dL (1.3-4.6) 11/03/24 11:30 Lipase 21 U/L (13-60) 11/03/24 11:30 Urine Color Dark yellow (Yellow) A 11/03/24 12:53 Urine Appearance Clear (CLEAR) 11/03/24 12:53 Urine pH 6.0 (5-7) 11/03/24 12:53 Ur Specific [place] 1.035 (1.005-1.030) H 11/03/24 12:53 Urine Protein Trace (Negative) A 11/03/24 12:53 Urine Glucose (UA) Negative (Normal) 11/03/24 12:53 Urine Ketones 4+ (Negative) 11/03/24 12:53 Urine Blood Negative (Negative) 11/03/24 12:53 Urine Nitrate Negative (Negative) 11/03/24 12:53 Urine Bilirubin 2+ (Negative) H 11/03/24 12:53 Urine Urobilinogen 1.0 mg/dL (Negative) 11/03/24 12:53 Ur Leukocyte Esterase Trace (Negative) A 11/03/24 12:53 Urine RBC 0-2 /hpf (0-2) 11/03/24 12:53 Urine WBC 0-5 /hpf (0-5) 11/03/24 12:53 Ur Squamous Epith Cells 0-5 /hpf (0-5) 11/03/24 12:53 Amorphous Sediment Not Reportable 11/03/24 12:53 Urine Bacteria None seen /hpf (NONE) 11/03/24 12:53 Hyaline Casts 4.95 /lpf 11/03/24 12:53 Ethyl Alcohol < 10 mg/dL (0-10) 11/03/24 11:30 All radiology interpretation(s) finalized by discharge Discharge Plan Discharge Patient Disposition: Home Clinical Impression: Alcohol withdrawal syndrome GERD (gastroesophageal reflux disease) Qualifiers: Esophagitis presence: esophagitis presence not specified Qualified Code(s): K 21.9 - Gastro-esophageal reflux disease without esophagitis Condition: Stable Prescriptions: New chlordiazepoxide HCl 25 mg capsule 25 mg PO QID Qty: 7 0RF Rx Instructions: 1 tab every 6 hours day 1, 1 tablet every 12 hours day 2, 1 tablet at at bedtime day 3 pantoprazole 40 mg tablet,delayed release (DR/EC) 40 mg PO DAILY 28 Days Qty: 30 0RF No Action clindamycin HCl 300 mg capsule 300 mg PO Q6H Qty: 40 0RF tramadol 50 mg tablet 50 mg PO Q6H PRN (Reason: pain) Qty: 16 0RF hydrocodone-acetaminophen 5-325 mg tablet 1 tab PO Q6H PRN (Reason: pain) Qty: 8 0RF hydrocodone-acetaminophen 5-325 mg tablet 1 tab PO QID PRN (Reason: pain) Qty: 20 0RF Discharge Orders: Discharge ED (Routine); Ordered 11/03/24 Ordered By: Samson Tellez Discharge Diet: Usual diet Discharge Activity: Increase activity as tolerated Patient Instructions: Alcohol Withdrawal (ED), Opioid Safety, Pain Management, Patient Portal & Dee Instructions Activity Restrictions/Additional Instructions: Thank you for choosing [facility] for your healthcare needs today. It is very important that you follow up as instructed or that you return to the Emergency Department should you have concerns or if your condition changes or worsens in any way. You are seen in the emergency room with concerns about alcohol withdrawal. Since you already been off of alcohol for 4 days your symptoms were mild. Recommend you use chlordiazepoxide for the next 3 days first day 1 tablet every 6 hours. On the second day 1 tablet every 12 hours on the third 1 tablet at bedtime. Follow-up with an outpatient program to help achieve and maintain your sobriety. 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
--- NOTE | 2024-11-03 10:32 | ECG_ITS ---
[employer] Test Date: 2024-11-03 Pat Name: Jeffrey Rao Department: Room: Gender: Male [employer] Supervisor: : 2000 Requested By: Samson Ramirez Order Number: [id number] [place] MD: Mikki Garcia M.D. Measurements Intervals [place] Rate: 114 P: 83 [place]: 156 QRS: 68 QRSD: 76 T: 96 QT: 296 QTc: 408 Interpretive Statements SINUS TACHYCARDIA NONSPECIFIC ST & T-WAVE ABNORMALITY ABNORMAL RHYTHM ECG No previous ECG available for comparison Baseline artifacts, need to repeat Electronically Signed On 11-03-2024 17:16:28 CDT by Mikki Garcia M.D. [email or web address]
[2024-11-03] MEDS: lidocaine 2% viscous 15 ML, aluminum-mag hydrox-simethicon 30 ML, sucralfate oral liq 1 GM PO (11:35)
[2024-11-03 11:40] LABS: Hematocrit 46.2 % (37-53); Hemoglobin 15.60 g/dL (11.27-16.99); Mean Corpuscular HGB Conc 33.8 g/dL (30-55); Mean Corpuscular Hemoglobin 29.8 pg (27-33); Mean Corpuscular Volume 88.3 fl (82-101); Nucleated Red Blood Cells % 0 %; Platelet Count 265 10^3/cmm (157-399); Red Blood Count 5.23 10^6/uL (3.85-5.65); White Blood Count 8.19 10^3/uL (3.29-11.43)
[2024-11-03] MEDS: LORazepam 1 MG/0.5 ML injection 2 MG IVP (11:40)
[2024-11-03 11:59] LABS: Alanine Aminotransferase 21 U/L (0-41); Albumin Level 4.2 g/dL (3.5-5.2); Alkaline Phosphatase 109 U/L (40-130); Anion Gap 19.7 (5-19); Aspartate Amino Transferase 19 U/L (0-40); Blood Urea Nitrogen 14 mg/dL (6-20); Calcium 9.4 mg/dL (8.5-10.5); Carbon Dioxide 23 mmol/L (22-29); Chloride 96 mmol/L (98-107); Creatinine Clr Calc Pharmacy 105.0509; Globulin 3.5 g/dL (1.3-4.6); Glucose 117 mg/dL (65-115); Lipase 21 U/L (13-60); Osmolality Calculated 282 mOsm/kg (285-295); Potassium 3.7 mmol/L (3.5-5.1); Sodium 135 mmol/L (136-145); Total Protein 7.7 g/dL (6.6-8.7)
[2024-11-03 12:00] VITALS: BP 137/91; PULSE 86; O2SAT 97
[2024-11-03 12:13] LABS: Alcohol Level < 10 mg/dL (0-10)
[2024-11-03] MEDS: LORazepam 1 MG/0.5 ML injection IVP (12:52)
[2024-11-03 13:00] VITALS: BP 143/91; PULSE 99; O2SAT 96
[2024-11-03 13:08] LABS: Glucose Urine UA Negative (Normal); Nitrate Urine Negative (Negative)
[2024-11-03 13:14] LABS: Add Urine Microscopic? YES
[2024-11-03 13:17] LABS: Specific Gravity, Urine 1.035 (1.005-1.030)
[2024-11-03 13:30] VITALS: PULSE 112; O2SAT 96
[2024-11-03 13:47] VITALS: BP 137/76; PULSE 100; O2SAT 97
== END 2024-11-03 13:47 | disposition home or self-care (01) ==
PROVIDERS: Emergency Provider Family Medicine
DX: F10.239 Alcohol dependence with withdrawal, unspecified (principal); K21.9 Gastro-esophageal reflux disease without esophagitis; Z72.0 Tobacco use
CPT/HCPCS: 36415; 71045; 80053; 80307; 81001; 83690; 85025; 93005; 96361; 96374; 96376; 99285; J2060; J7030; J9999